=== PATIENT | female | born 1990 | race American Indian/Alaskan Native ===

== ENCOUNTER 2017-02-10 17:56 | Emergency (ER) | payer OTHER ==
[2017-02-10] MEDS ORDERED: TYLENOL PO ONE (22:13)
[2017-02-10 22:14] LABS: Basophils % (Auto) 0.8 % (0.0-1.8); Eosinophils % (Auto) 1.9 % (0.0-4.3); Hematocrit 45.7 % (30.3-42.9); Hemoglobin 15.2 gm/dl (10.1-14.3); Mean Corpuscular HGB Conc 33 % (30-34); Mean Corpuscular Hemoglobin 27 pg (28-32); Mean Corpuscular Volume 82 fl (79-97); Platelet Count 257 K/mm3 (140-440); Red Blood Count 5.58 M/mm3 (3.65-5.03); Red Cell Distribution Width 14.5 % (13.2-15.2); White Blood Count 9.1 K/mm3 (4.5-11.0)
[2017-02-10] MEDS ORDERED: NACL 0.9% 1000 ML 1,000 ML IV ONE (22:17)
--- NOTE | 2017-02-10 22:23 | Emergency Department Report ---
<TATOEVELYN M - Last Filed: 02/10/17 22:18> ED Back Pain/Injury HPI - General Chief Complaint: Back Pain/Injury Stated Complaint: BACK PAIN Time Seen by Provider: 02/10/17 21:59 Source: patient Mode of arrival: Ambulatory Limitations: No Limitations - History of Present Illness Initial Comments: PT states she found out she was a few days ago after taking home test. PT is G 3 P1. PT states she thinks she is about 7 weeks . PT recently moved from [place] and has not established medical care in the area. PT has not had any sort or work up this . 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 PT states she was at work on . PT states she stands on her feet all day. PT states she woke up with deep lower back pain. PT states it gives her some relief to put pressure on her back. PT states she did not know what she could take for the pain since she is . PT states it hurts to move and sit. PT states she was standing in the waiting room and she started having pelvic pain, hip pain and everything was hurting. MD Complaint: back pain -: Gradual, days(s) (2) Similar Symptoms Previously: No Place: home (woke up with pain ) Radiation: abdomen Severity: severe Severity scale (0 -10): 10 Quality: sharp Consistency: constant Improves With: other (holding pressure to low back ) Worsens With: movement Context: unknown Associated Symptoms: difficulty walking, abdominal pain, nausea/vomiting ( nausea every morning ). denies: difficulty urinating, incontinence, headaches - Related Data Previous Rx's Medication Instructions Recorded Last Taken Type Acetaminophen/Codeine [Tylenol 1 tab PO Q6H PRN #10 tab 02/10/17 Unknown Rx /Codeine # 3 tab] Metoclopramide [Reglan] 10 mg PO TID #15 tab 02/10/17 Unknown Rx RX: Prenat Vit Comb.10/Iron/FA/Dha 1 each PO 2XWHS #15 combo..pkg 02/10/17 Unknown Rx [Vitafol-Ob+Dha Combo Pack] Allergies Allergy/AdvReac Type Severity Reaction Status Date / Time No Known Allergies Allergy Unverified 02/10/17 18:07 ED Review of Systems ROS: Stated complaint: BACK PAIN Other details as noted in HPI Comment: All other systems reviewed and negative Cardiovascular: denies: syncope Gastrointestinal: abdominal pain, nausea (every morning ) Genitourinary: abnormal menses (missed cycle, positive home pregnacy test ). denies: dysuria, frequency, discharge Musculoskeletal: back pain ED Past Medical Hx - Past Medical History Previous Medical History?: No - Surgical History Past Surgical History?: No - Social History Smoking Status: Never Smoker Substance Use Type: None - Medications Home Medications: Home Medications Medication Instructions Recorded Confirmed Last Taken Type Acetaminophen/Codeine [Tylenol 1 tab PO Q6H PRN #10 tab 02/10/17 Unknown Rx /Codeine # 3 tab] Metoclopramide [Reglan] 10 mg PO TID #15 tab 02/10/17 Unknown Rx RX: Prenat Vit Comb.10/Iron/FA/Dha 1 each PO 2XWHS #15 combo..pkg 02/10/17 Unknown Rx [Vitafol-Ob+Dha Combo Pack] ED Physical Exam - General Limitations: No Limitations General appearance: alert, in no apparent distress - Head Head exam: Present: atraumatic, normocephalic, normal inspection - Eye Eye exam: Present: normal appearance, PERRL, EOMI. Absent: conjunctival injection - ENT ENT exam: Present: normal exam, mucous membranes moist, normal external ear exam - Neck Neck exam: Present: normal inspection, full ROM. Absent: tenderness - Respiratory Respiratory exam: Present: normal lung sounds bilaterally. Absent: respiratory distress, wheezes, chest wall tenderness, accessory muscle use - Cardiovascular Cardiovascular Exam: Present: regular rate, normal rhythm, normal heart sounds - GI/Abdominal GI/Abdominal exam: Present: soft, normal bowel sounds. Absent: distended, tenderness, guarding, rebound - Extremities Exam Extremities exam: Present: normal inspection, full ROM, normal capillary refill. Absent: pedal edema, joint swelling - Back Exam Back exam: Present: normal inspection, full ROM. Absent: tenderness, CVA tenderness (R), CVA tenderness (L), muscle spasm, paraspinal tenderness, vertebral tenderness - Neurological Exam Neurological exam: Present: alert, oriented X3 - Psychiatric Psychiatric exam: Present: normal affect, normal mood - Skin Skin exam: Present: warm, dry, intact, normal color ED Course Vital Signs 02/10/17 02/10/17 02/11/17 18:08 23:19 00:12 Temperature 98.3 F Pulse Rate 108 H 69 Respiratory 18 18 18 Rate Blood Pressure 145/76 Blood Pressure 125/80 [Left] O2 Sat by Pulse 98 99 Oximetry - Pulse Oximetry Interpretation Digit-Finger Initial Pulse Oximetry Readin Actions Taken: none ED Medical Decision Making - Lab Data Result diagrams: 02/10/17 22:01 - Differential Diagnosis uti, strain, ectopic Critical care attestation.: If time is entered above; I have spent that time in minutes in the direct care of this critically ill patient, excluding procedure time. ED Disposition Clinical Impression: Back pain, Early stage of Disposition: - TO HOME OR SELFCARE Condition: Stable Instructions: (ED), Low Back Strain (ED) Prescriptions: Acetaminophen/Codeine [Tylenol /Codeine # 3 tab] 1 tab PO Q6H PRN #10 tab PRN Reason: Pain , Severe (7-10) Metoclopramide [Reglan] 10 mg PO TID #15 tab RX: Prenat Vit Comb.10/Iron/FA/Dha [Vitafol-Ob+Dha Combo Pack] 1 each PO 2XWHS # 15 combo..pkg Referrals: PRIMARY CARE, [Primary Care Provider] - 3-5 Days MELODY MORROW MD [Staff Physician] - 2-3 Days Forms: Work/School Release Form(ED) <NANCY ANNA - Last Filed: 02/11/17 06:45> ED Medical Decision Making - Lab Data Result diagrams: 02/10/17 22:01 02/10/17 22:01 - Radiology Data Final impression: Viable single intrauterine with estimated gestational age is 6 weeks and 2 days. Estimated due date 10/04/2017. Continue follow-up was recommended. Dr Annabella VALLES - Medical Decision Making 26 yo female presenting to ED with lower back strain. I have explained the results of lab work as well as imaging with patient. She will get a copy for her records> OB follow up. She verbalizes understanding of return precautions. Critical Care Time: No ED Disposition Is pt being admited?: No Does the pt Need Aspirin: No
[2017-02-10 22:35] LABS: Alanine Aminotransferase 11 units/L (7-56); Albumin/Globulin Ratio 1.4 %; Alkaline Phosphatase 64 units/L (35-129); Anion Gap 16 mmol/L; Blood Urea Nitrogen 9 mg/dL (7-17); Calcium 9.3 mg/dL (8.4-10.2); Carbon Dioxide 22 mmol/L (22-30); Chloride 100.2 mmol/L (98-107); Glucose 85 mg/dL (65-100); Potassium 3.3 mmol/L (3.6-5.0); Sodium 135 mmol/L (137-145); Total Protein 6.8 g/dL (6.3-8.2)
[2017-02-10] MEDS ORDERED: K-DUR PO ONE (22:41)
[2017-02-10 22:49] LABS: Bilirubin,Urine Negative (Negative); Ketones,Urine Trace mg/dL (Negative)
[2017-02-10 22:50] LABS: Blood,Urine Negative (Negative); Nitrite,Urine Negative (Negative)
[2017-02-10 22:51] LABS: Leukocyte Esterase,Urine Trace (Negative)
[2017-02-10 22:53] LABS: Mucus,Urine 3+ /HPF
--- NOTE | 2017-02-10 23:20 | Ultrasound Report ---
FINAL REPORT EXAM: US OB \T\lt; = 14 WEEKS FETUS HISTORY: low back pain, TECHNIQUE: Transabdominal pelvic ultrasound was performed in multiple grayscale sonographic images were obtained of the uterus and adnexa PRIORS: Endovaginal ultrasound 02/10/2017 FINDINGS: Uterus measures approximately 8.7 x 5 x 6.3 centimeters. There is a gestational sac in the uterus with a pole that measures 4.4 millimeters in length. Yolk sac is identified. heart rate was detected at 123 beats per minute. Ovaries were not identified with certainty. IMPRESSION: 1. Viable single intrauterine with estimated gestational age 6 weeks 1 day. Estimated due date 10/05/2017. Continued follow-up is recommended. 2. Nonvisualization of ovaries. 3. Please refer to report from endovaginal ultrasound from 02/10/2017 for additional information.
--- NOTE | 2017-02-10 23:23 | Ultrasound Report ---
FINAL REPORT EXAM: US OB TRANSVAGINAL HISTORY: low back pain, TECHNIQUE: Endovaginal ultrasound was performed in multiple grayscale sonographic images were obtained of the uterus and adnexa. PRIORS: None. FINDINGS: Gestational sac is identified in the uterus with a pole that measures 5.3 millimeters in length. heart was detected at 122 beats per minute. Yolk sac is identified. Right and left ovary measure approximately 2 x 1.3 x 1.6 centimeters and 2.9 x 2.5 x 2.2 centimeters, respectively. There is a cystic structure in the left ovary that measures approximately 12 millimeters which may represent corpus luteum. IMPRESSION: 1. Viable single intrauterine with estimated gestational age 6 weeks 2 days. Estimated due date 10/04/2017. Continued follow-up is recommended. 2. Please refer to report from transabdominal pelvic ultrasound from 02/10/2017 for additional information.
[2017-02-11 02:13] VITALS: BP 125/80
== END 2017-02-11 00:16 | disposition home or self-care (01) ==
LOC: ED 17:56
DX: O26.891 Other specified pregnancy related conditions, first trimester (principal); M54.5 Low back pain; Z3A.01 Less than 8 weeks gestation of pregnancy
CPT/HCPCS: 36415; 76801; 76817; 80053; 81001; 84702; 85025; 86900; 86901; 87086; 96360; 99284; J7030